=== PATIENT | female | born 1950 | race Caucasian/White ===

== ENCOUNTER 2021-11-03 11:09 | Day surgery (SDC) | payer MEDICARE, BC ==
[~2021-11-03] VITALS: Ht 160 cm; Wt 78.8 kg
[~2021-11-03 11:09] MED LIST: ALEV220T22 PO; NS 1,000 ML IV ONE; TUMS500C PO
[2021-11-03] MEDS ORDERED: propofoL 500 MG/50 ML VIAL As Ordered ONE (12:52)
[2021-11-03] MEDS ORDERED: LIDOCAINE 2% 100MG/5ML SDV (FOR ANES.) As Ordered ONE (12:52)
[2021-11-03 13:30] VITALS: BP 123/66
== END 2021-11-03 13:36 | disposition home or self-care (01) ==
LOC: M OPP 11:09
PROVIDERS: ATTEND Internal Medicine Gastroenterology
DX: Z12.11 Encounter for screening for malignant neoplasm of colon (principal); Z86.010 Personal history of colon polyps; K64.0 First degree hemorrhoids; K57.30 Diverticulosis of large intestine without perforation or abscess without bleeding; D12.0 Benign neoplasm of cecum; Z79.1 Long term (current) use of non-steroidal anti-inflammatories (NSAID); G35 Multiple sclerosis; Z87.442 Personal history of urinary calculi